=== PATIENT | male | born 1990 | race Caucasian/White ===

== ENCOUNTER 2023-08-05 12:02 | Outpatient (CLI) | payer BC ==
[2023-08-06 05:13] LABS: HIV SCREEN 4TH GENERATION Non Reactive (Non Reactive); RPR Non Reactive (Non Reactive)
[2023-08-06 08:11] LABS: HSV 2 IGG TYPE SPEC <0.91 index (0.00-0.90)
[2023-08-07 00:08] LABS: HCV AB Non Reactive (Non Reactive)
== END 2023-08-05 12:03 | disposition home or self-care (01) ==
LOC: LAB 12:02
PROVIDERS: ATTEND Physician Assistant Medical
DX: Z11.3 Encounter for screening for infections with a predominantly sexual mode of transmission (principal)
CPT/HCPCS: 36415; 86592; 86695; 86696; 86803; 87389